=== PATIENT | male | born 1970 | race Caucasian/White ===

== ENCOUNTER 2025-03-02 05:37 | Observation (INO) ==
--- NOTE | 2025-03-02 06:18 | Emergency Department Note ---
Impression & Plan DDD (degenerative disc disease), lumbar, Ambulatory dysfunction ED Provider Note Diagnosis: Lower back pain, ambulatory dysfunction Disposition: Admit CHIEF COMPLAINT: Back pain HPI: Patient is a 54-year-old male presenting with complaint of lower back pain. Patient states symptoms of started over the past 1 to 2 weeks time. Patient states that approximately 2 months ago he had laminectomy for lower back pain radiating down his right leg. Those symptoms have resolved. Patient does physical therapy since then. Patient states he noticed 1 to 2 weeks ago that now he is having pain on the left lower back region and radiates down his left leg. Patient denies any bowel or bladder symptoms. Patient states he woke up this morning and had trouble standing on his left leg. Patient did not take any medications prior to arrival. PAST MEDICAL HISTORY: See Below PAST SURGICAL HISTORY: See Below SOCIAL HISTORY: See Below HOME MEDICATIONS: See Below ALLERGIES: See Below VITALS: See Below PHYSICAL EXAMINATION: GENERAL: Well appearing, well nourished, NAD, non-toxic. EYE EXAM: Normal conjunctiva. OROPHARYNX: Moist mucus membranes. Grossly normal dentition. NECK: Supple, LUNGS: Clear to auscultation. Normal chest wall mechanics. HEART: NSR ABDOMEN: Abdomen soft, non-tender, normo-active bowel sounds, no masses, no rebound or guarding BACK: Tenderness lower lumbar region and left sciatic region, 5 out of 5 muscle strength of the lower extremities bilaterally, intact sensation bilateral lower extremities, 2+ dorsal pedis pulses bilateral lower extremities SKIN: No rashes and no bruising. UPPER EXTREMITIES: Upper extremities are grossly normal LOWER EXTREMITIES: Grossly normal, no edema. NEURO EXAM: A&O x3,, normal speech, moves all 4 extremities PSYCH: Cooperative MEDICAL DECISION MAKING: History obtained from: Patient ER Course: Patient is a 54-year-old male presenting with complaint of left lower back pain that radiates down his left leg. Patient symptoms been present for couple days time and has been on a steroid course without improvement in symptoms. Patient states today he could not bear weight on his left side without feeling like he was going up fall. Patient states he has to walk up his left knee to feel like he has enough strength to hold himself up. Patient has bowel or bladder symptoms. Patient's postvoid residual that was performed approximately 30 minutes after he last urinated was less than 70 cc present. Patient not retaining urine. Patient was given medications for pain control. Patient has intact muscle strength and sensation of the lower extremities bilaterally. Patient has good strong 2+ dorsal pedis pulse left lower extremity. Please see discussions below with orthopedic surgery team and hospitalist service. Labs (independently interpreted) are significant for: No electrolyte abnormalities Imaging results (independently interpreted): X-ray lumbar spine no acute fracture Medications given: Dilaudid, Flexeril, Lyrica, Toradol Consultants: Discussed patient's case with his orthopedic surgery team , reviewed patient's presentation knows the patient well and they have been calling the office today and is aware of his current situation. Recommends patient receive an MRI of the lumbar spine with and without contrast and will come down and evaluate the patient at bedside. Patient was seen by Dr. Gregory no acute surgical abnormality found on MRI. Recommends patient received Toradol Lyrica. Recommends patient be admitted for pain consult Discussion with hospitalist service Triage Nursing notes reviewed and agree them. Vital Signs: reviewed and remarkable for: no significant abnormalities Past Med/Surg History Problem List (Updated 03/02/25 @ 15:10 by Enrique Lau DO) Ambulatory dysfunction (Acute) Pain of left lower extremity S/P lumbar laminectomy Lumbar spondylosis Pain of right lower extremity Paresthesia of right lower extremity Sacroiliitis Lumbar radiculopathy Arthralgia HEATHER positive LFT elevation DDD (degenerative disc disease), lumbar (Acute) Spinal stenosis Chronic back pain Anxiety with depression Hyperlipidemia Hypertension Medical History Hyperlipidemia Anxiety with depression Spinal stenosis Lumbar spondylosis Numbness and tingling of foot right Acid reflux Rheumatoid arthritis Taking Celebrex Asthma Taking Dupixent Surgical History PONV (postoperative nausea and vomiting) History of surgery on arm left biceps repair Nasal polyp nasal polyp surgeries x7 S/P cervical spinal fusion C6,C7- full ROM S/P rotator cuff surgery R/L H/O cardiac catheterization 2002 + 2009 > no stents Family History Grandfather Myocardial infarction Aunt Ovarian cancer Uncle Prostate cancer Mother Hypertension [place] cell carcinoma Father Diabetes Kidney disease Denies family history of Breast cancer Colorectal cancer Social History Smoking Status: Never smoker Second Hand Exposure: No; Do You Dip or Chew Tobacco: No; Hx Alcohol Use: Yes Alcohol type: hard liquor Alcohol Intake Frequency: 2-3 x/Week Hx Substance Use: No Preferred Language: Maldivian Communication Ability: Effective Visual Impairment: No Limitations Hearing Ability: Normal Rn Social Services Required: No Beliefs That Will Affect Care: None marital status: Legally Current Living Situation: Significant Other Current Living Situation Comment: W/GIRLFRIEND current occupational status: employed current occupation: [employer] Feels Safe at Home: Yes Childhood Exposure to Second-Hand Smoke: No Diet: regular caffeine: Yes Dental Care, Regularly: Yes Physical Activity Frequency: Does not Exercise Seatbelt Use: never Sunscreen Use: No Assistive Devices: None Allergies Allergies Allergy/AdvReac Type Severity Reaction Status Date / Time moxifloxacin [From Avelox] Allergy Severe Anaphylaxis Verified 03/02/25 08:01 Home Meds Home Medications Medication Instructions Recorded Confirmed triamcinolone acetonide 55 mcg 1 spray intranasal DAILY 11/26/24 03/02/25 nasal spray aerosol (Nasacort) dupilumab 300 mg/2 mL subcutaneous 300 mg subcut Q14D 03/02/25 03/02/25 syringe (Dupixent) gabapentin 300 mg capsule 300 mg PO TID PRN Pain 03/02/25 03/02/25 Previous Rx's Medication Instructions Recorded celecoxib 200 mg capsule (Celebrex) 200 mg PO BID #180 caps 10/30/24 duloxetine 30 mg capsule,delayed 30 mg PO DAILY #90 caps 10/30/24 release omeprazole 40 mg capsule,delayed 40 mg PO BID #60 caps 11/11/24 release fenofibrate nanocrystallized 145 145 mg PO DAILY #30 tabs 02/11/25 mg tablet Results & Data (ED) Vital Signs Vital Signs - 24 hr 03/02/25 05:40 03/02/25 06:51 03/02/25 08:03 Temperature 36.6 C Temperature Source Temporal Artery Scan Pulse Rate 71 Pulse Rate [Right Finger] 66 60 Pulse Rhythm Regular Pulse Strength Normal Respiratory Rate 18 20 18 Respiratory Effort / Characteristics Non-Labored Spontaneous Non-Labored Non-Labored Spontaneous Respiratory Depth Normal Normal Normal Respiratory Pattern Regular Blood Pressure 148/96 H Blood Pressure [Right Arm] 136/102 H 136/86 Blood Pressure Mean 113 Blood Pressure Mean [Right Arm] 113 102 Blood Pressure Position [Right Arm] Lying Pulse Oximetry 97 95 100 Oxygen Delivery Method Room Air Room Air Room Air Sepsis Recent Fever Within 48 Hours No Sepsis New/Unexplained Change in Mental Status No Sepsis Action Taken by Nursing No Action Required 03/02/25 10:47 03/02/25 12:00 03/02/25 14:00 Temperature Temperature Source Pulse Rate Pulse Rate [Right Finger] 67 67 70 Pulse Rhythm Pulse Strength Respiratory Rate 18 16 16 Respiratory Effort / Characteristics Non-Labored Spontaneous Respiratory Depth Normal Respiratory Pattern Regular Blood Pressure Blood Pressure [Right Arm] 126/75 136/85 134/106 H Blood Pressure Mean Blood Pressure Mean [Right Arm] 92 102 115 Blood Pressure Position [Right Arm] Lying Pulse Oximetry 93 97 94 Oxygen Delivery Method Room Air Room Air Room Air Sepsis Recent Fever Within 48 Hours Sepsis New/Unexplained Change in Mental Status Sepsis Action Taken by Nursing Laboratory Data 03/02/25 08:00 03/02/25 08:00 Lab Results 03/02/25 Range/Units 08:00 WBC 6.53 (4.8-10.8) K/ul RBC 5.36 (4.70-6.10) M/uL Hgb 14.7 (14.0-18.0) g/dl Hct 45.0 (42.0-52.0) % MCV 84.0 (80.0-100.0) fL MCH 27.4 (25.0-34.0) pg MCHC 32.7 (32.0-36.0) g/dL RDW Std Deviation 38.5 (36.4-46.3) fL RDW Coeff of Sg 12.8 (11.5-14.5) % Plt Count 213 (130-400) K/uL MPV 9.6 (9.4-12.4) fL Immature Gran % (Auto) 0.8 % Neut % (Auto) 49.1 % Lymph % (Auto) 40.0 % [place] % (Auto) 8.1 % Eos % (Auto) 1.4 % Baso % (Auto) 0.6 % Neut # (Auto) 3.21 (1.40-6.50) K/uL Lymph # (Auto) 2.61 (1.20-3.40) K/uL [place] # (Auto) 0.53 (0.11-0.59) K/uL Eos # (Auto) 0.09 (0.00-0.50) K/uL Baso # (Auto) 0.04 (0.00-0.20) K/uL Immature Gran # (Auto) 0.05 (0.01-0.20) K/uL Sodium 140 (136-145) mmol/L Potassium 4.1 (3.5-5.1) mmol/L Chloride 104 (98-107) mmol/L Carbon Dioxide 32 (21-32) mmol/L Anion Gap 4 (3-11) BUN 27 H (6-23) mg/dl Creatinine 1.04 (0.6-1.4) mg/dl Est Cr Clr Drug Dosing 93.4 ml/min eGFR 84.80 BUN/Creatinine Ratio 26.0 H (10-20) Glucose 97 (70-99(Fasting)) mg/dl Calcium 9.0 (8.6-10.3) mg/dl Administered Medications Discontinued Medications Cyclobenzaprine HCl (Cyclobenzaprine Hcl 10 Mg Tab) 10 mg PO NOW STA Stop: 03/02/25 06:14 Last Admin: 03/02/25 06:23 Dose: 10 mg Documented By: DULCE Gadobutrol (Gadobutrol 65ml Vial) 10 ml IV ONCE ONE Stop: 03/02/25 10:04 Last Admin: 03/02/25 10:05 Dose: 10 ml Documented By: SEVERIANO Hydromorphone HCl (Hydromorphone Inj 1 Mg/Ml Syringe) 1 mg IM NOW STA Stop: 03/02/25 06:14 Last Admin: 03/02/25 06:22 Dose: 1 mg Documented By: DULCE Ketorolac Tromethamine (Ketorolac Tromethamine 15 Mg/Ml Vial) 10 mg IV NOW ONE Stop: 03/02/25 13:22 Last Admin: 03/02/25 13:50 Dose: 10 mg Documented By: RADU Pregabalin (Pregabalin 50 Mg Cap) 50 mg PO ONCE ONE Stop: 03/02/25 13:23 Last Admin: 03/02/25 13:50 Dose: 50 mg Documented By: RADU Imaging Data Radiologist's Impression: Lumbar Spine X-Ray 03/02/25 06:14 EXAM: XR lumbar spine min 4V routine CLINICAL HISTORY: Lower pain with/ radiation down the left leg. TECHNIQUE: X-ray images of the lumbar spine were obtained in anteroposterior (AP), lateral, spot view L5-S1 and oblique projections. COMPARISON: 11-19-2024 X- ray. FINDINGS: Alignment: Reterolthesis of L1 over L2 and L2 over L3 is seen. (stable) Reduced lumbar lordosis (stable) Vertebral Bodies: Newly seen defective spinous processes of L2 and L3 vertebra , postoperative Mild decrease in ventral height of T11,T12 , L1 and L2 vertebral ( about 10-15%) , likely degenerative (stable) Spondylodegenerative changes of the lumbar spine are seen in form of marginal osteophytes of the opposing vertebral end plates, subchondral sclerosis of L5/S1 end plates Intervertebral Disc Spaces: Narrowed L1-2,L2-3 and L5-S1 disc spaces. (stable) Soft Tissues: Paraspinal soft tissues are of normal thickness. No evidence of paraspinal soft tissue swelling or mass effect. Additional Findings: No other significant abnormalities noted. IMPRESSION: 1. Newly seen defective spinous processes of L2 and L3 vertebra , postoperative 2. Lumbar spine degenerative changes (stable) 3. Mild decrease in ventral height of T11,T12 , L1 and L2 vertebral ( about 10-15%) , likely degenerative (stable) 4. Narrowed L1-L2, L2-L3 and L5-S1 disc spaces. (stable) 5. Reterolthesis of L1 over L2 and L2 over L3 is seen. (stable) 6. Reduced lumbar lordosis (stable) Disclaimer: A subtle bone abnormality or fracture may not be readily apparent on X-rays, thus clinical correlation and further imaging including follow-up CT, MRI, or follow-up X-rays are advised as needed. Electronically signed by Andi Monterroso 03-02-2025 08:09 AM Lumbar Spine MRI 03/02/25 07:47 MR lumbar spine wo/w con CLINICAL HISTORY: Back pain with radiculopathy. COMPARISON: X-ray of 03/02/2025 TECHNIQUE: Multiplanar, multi sequence MRI of the lumbar spine was performed without intravenous contrast. FINDINGS: Conus medullaris terminates normally at L1. There is prior laminectomy at L2-3. No acute fracture seen at the lumbar spine. No epidural hematoma. There is minimal retrolisthesis of L2 on 3 and L5 on S1. Otherwise normal alignment. There is enhancement of the scar overlying the laminectomy site with no abscess or hematoma seen. No abnormal enhancement seen. L1-2: There is a minimal disc bulge without significant central canal or neuroforaminal narrowing. L2-3: There is a mild disc bulge and mild ligamentum flavum and facet hypertrophy. No significant central canal narrowing. There is mild bilateral neural foraminal narrowing. L3-4: There is a minimal disc bulge. There is mild facet hypertrophy. There is mild central canal narrowing. There is mild bilateral neural foraminal narrowing. L4-5: There is a mild disc bulge with mild facet hypertrophy. No significant central canal narrowing. There is mild bilateral neural foraminal narrowing. L5-S1: There is a minimal disc bulge. There is minimal facet hypertrophy. No significant central canal narrowing. There is mild bilateral neural foraminal narrowing. IMPRESSION: 1. No lumbar spine fracture seen. 2. Degenerative changes as described. ACT 112: Negative or not required by law. The above report was generated using voice recognition software. It may contain grammatical, syntax or spelling errors. Electronically signed by: Jefferson Meza M.D. 03/02/2025 10:45 AM Orbit X-Ray 03/02/25 08:28 XR orbits for MRI CLINICAL HISTORY: Screening for foreign body for MRI COMPARISON STUDY: None FINDINGS: No metallic foreign bodies seen at the orbits. IMPRESSION: No metallic foreign body seen at the orbits. ACT 112: Negative or not required by law. Electronically signed by: Jefferson Meza M.D. 03/02/2025 9:10 AM Hip/Pelvis X-Ray 03/02/25 12:11 XR hip LT 2V w pelvis CLINICAL HISTORY: L hip/thigh pain COMPARISON: 12/04/2024 FINDINGS: No fracture or dislocation. There is a stable tiny chronic calcification adjacent to the left acetabulum, calcific tendinitis versus sequela of old injury. No acute fracture or dislocation. No significant degenerative change at the hips. SI joints are unremarkable. There are lower lumbar degenerative changes. IMPRESSION: No fracture seen. ACT 112: Negative or not required by law. Electronically signed by: Jefferson Meza M.D. 03/02/2025 12:40 PM Discharge Plan Visit Data Chief Complaint: Leg Injury/Pain Stated Complaint: LT LEG NUMBNESS, BACK SURG ED Provider: Enrique Lau Discharge Problem: DDD (degenerative disc disease), lumbar, Ambulatory dysfunction Condition: Fair Forms Stand Alone Forms: My [facility] [place] Prescriptions Prescriptions: No Action omeprazole 40 mg capsule,delayed release(DR/EC) 40 mg PO BID Qty: 60 2RF fenofibrate nanocrystallized 145 mg tablet 145 mg PO DAILY Qty: 30 0RF celecoxib [Celebrex] 200 mg capsule 200 mg PO BID Qty: 180 3RF duloxetine 30 mg capsule,delayed release(DR/EC) 30 mg PO DAILY Qty: 90 3RF triamcinolone acetonide [Nasacort] 55 mcg Aerosol,[place] 1 spray INTRANASAL DAILY Rx Instructions: administer into each nostril gabapentin 300 mg capsule 300 mg PO TID PRN (Reason: Pain) Dupixent Syringe 300 mg/2 mL syringe 300 mg subcut Q14D Referrals Referrals: Chan Cho DO [Primary Care Provider] -
[2025-03-02] MEDS: HYDROmorphone INJ 1 MG/ML SYRINGE IM STA (06:22)
[2025-03-02] MEDS: CYCLOBENZAPRINE HCL 10 MG TAB PO STA (06:23)
--- NOTE | 2025-03-02 08:10 | XRay Report ---
EXAM: XR lumbar spine min 4V routine CLINICAL HISTORY: Lower pain with/ radiation down the left leg. TECHNIQUE: X-ray images of the lumbar spine were obtained in anteroposterior (AP), lateral, spot view L5-S1 and oblique projections. COMPARISON: 11-19-2024 X- ray. FINDINGS: Alignment: Reterolthesis of L1 over L2 and L2 over L3 is seen. (stable) Reduced lumbar lordosis (stable) Vertebral Bodies: Newly seen defective spinous processes of L2 and L3 vertebra , postoperative Mild decrease in ventral height of T11,T12 , L1 and L2 vertebral ( about 10-15%) , likely degenerative (stable) Spondylodegenerative changes of the lumbar spine are seen in form of marginal osteophytes of the opposing vertebral end plates, subchondral sclerosis of L5/S1 end plates Intervertebral Disc Spaces: Narrowed L1-2,L2-3 and L5-S1 disc spaces. (stable) Soft Tissues: Paraspinal soft tissues are of normal thickness. No evidence of paraspinal soft tissue swelling or mass effect. Additional Findings: No other significant abnormalities noted. IMPRESSION: 1. Newly seen defective spinous processes of L2 and L3 vertebra , postoperative 2. Lumbar spine degenerative changes (stable) 3. Mild decrease in ventral height of T11,T12 , L1 and L2 vertebral ( about 10-15%) , likely degenerative (stable) 4. Narrowed L1-L2, L2-L3 and L5-S1 disc spaces. (stable) 5. Reterolthesis of L1 over L2 and L2 over L3 is seen. (stable) 6. Reduced lumbar lordosis (stable) Disclaimer: A subtle bone abnormality or fracture may not be readily apparent on X-rays, thus clinical correlation and further imaging including follow-up CT, MRI, or follow-up X-rays are advised as needed. Electronically signed by Andi Monterroso 03-02-2025 08:09 AM
[2025-03-02 08:12] LABS: Hematocrit (blood only) 45.0 % (42.0-52.0); Hemoglobin 14.7 g/dl (14.0-18.0); Immature Granulocytes # (auto) 0.05 K/uL (0.01-0.20); Immature Granulocytes % (auto) 0.8 %; Mean Corpuscular Hemoglobin 27.4 pg (25.0-34.0); Mean Corpuscular Volume 84.0 fL (80.0-100.0); Platelet Count 213 K/uL (130-400); RDW Standard Deviation 38.5 fL (36.4-46.3); Red Blood Count 5.36 M/uL (4.70-6.10); White Blood Count 6.53 K/ul (4.8-10.8)
[2025-03-02 08:32] LABS: Anion Gap 4.0 (3-11); Blood Urea Nitrogen 27.0 mg/dl (6-23); Calcium 9.0 mg/dl (8.6-10.3); Carbon Dioxide 32.0 mmol/L (21-32); Chloride 104.0 mmol/L (98-107); Creatinine Clr Calc Pharmacy 93.4 ml/min; Glucose 97.0 mg/dl (70-99(Fasting)); Potassium 4.1 mmol/L (3.5-5.1); Sodium 140.0 mmol/L (136-145)
--- NOTE | 2025-03-02 09:11 | XRay Report ---
XR orbits for MRI CLINICAL HISTORY: Screening for foreign body for MRI COMPARISON STUDY: None FINDINGS: No metallic foreign bodies seen at the orbits. IMPRESSION: No metallic foreign body seen at the orbits. ACT 112: Negative or not required by law. Electronically signed by: Jefferson Meza M.D. 03/02/2025 9:10 AM
[2025-03-02] MEDS: GADOBUTROL 65ML VIAL IV ONE (10:05)
--- NOTE | 2025-03-02 10:46 | Magnetic Resonance Report ---
MR lumbar spine wo/w con CLINICAL HISTORY: Back pain with radiculopathy. COMPARISON: X-ray of 03/02/2025 TECHNIQUE: Multiplanar, multi sequence MRI of the lumbar spine was performed without intravenous cont rast. FINDINGS: Conus medullaris terminates normally at L1. There is prior laminectomy at L2-3. No acute fr acture seen at the lumbar spine. No epidural hematoma. There is minimal retrolisthesis of L2 on 3 and L5 on S1. Otherwise normal alignment. There is enhancement of the scar overlying the laminectomy sit e with no abscess or hematoma seen. No abnormal enhancement seen. L1-2: There is a minimal disc bulge without significant central canal or neuroforaminal narrowing. L2-3: There is a mild disc bulge and mild ligamentum flavum and facet hypertrophy. No significant edmund tral canal narrowing. There is mild bilateral neural foraminal narrowing. L3-4: There is a minimal disc bulge. There is mild facet hypertrophy. There is mild central canal bola rowing. There is mild bilateral neural foraminal narrowing. L4-5: There is a mild disc bulge with mild facet hypertrophy. No significant central canal narrowing. There is mild bilateral neural foraminal narrowing. L5-S1: There is a minimal disc bulge. There is minimal facet hypertrophy. No significant central moraima l narrowing. There is mild bilateral neural foraminal narrowing. IMPRESSION: 1. No lumbar spine fracture seen. 2. Degenerative changes as described. ACT 112: Negative or not required by law. The above report was generated using voice recognition software. It may contain grammatical, syntax o r spelling errors. Electronically signed by: Jefferson Meza M.D. 03/02/2025 10:45 AM
[2025-03-02 12:23] VITALS: RESP 16
--- NOTE | 2025-03-02 12:42 | XRay Report ---
XR hip LT 2V w pelvis CLINICAL HISTORY: L hip/thigh pain COMPARISON: 12/04/2024 FINDINGS: No fracture or dislocation. There is a stable tiny chronic calcification adjacent to the l eft acetabulum, calcific tendinitis versus sequela of old injury. No acute fracture or dislocation. N o significant degenerative change at the hips. SI joints are unremarkable. There are lower lumbar deg enerative changes. IMPRESSION: No fracture seen. ACT 112: Negative or not required by law. Electronically signed by: Jefferson Meza M.D. 03/02/2025 12:40 PM
--- NOTE | 2025-03-02 13:36 | History & Physical Report ---
<Statement entered by Criselda Rivera MD - 03/03/25 17:57> I have reviewed vital signs, chart notes, labs and imaging. I have also discussed the management of the patient with the MARIA ESTHER and I agree with the exam findings documented in the history and physical examination and the documented assessment and plan unless otherwise stated below. Date of Service March 02, 2025 Assessment & Plan (1) S/P lumbar laminectomy: (2) Sacroiliitis: (3) Chronic back pain: (4) Hyperlipidemia: (5) Anxiety with depression: Plan 54 y/o man with spinal stenosis, lumbar radiculopathy, HLD, GERD and anxiety and depression who presents to the ER with worsening back pain x 2 weeks. Initial labs unrevealing. Lumbar spine xray and L-spine MRI without acute findings - no lumbar spine fracture seen, degenerative changes mild/minimal disc bulge throughout. Admitted for pain control and pain management consult. #Low back pain - ongoing for 2 weeks with recent surgery with Dr. Gregory 12/18. No acute findings on imaging. Ortho spine consulted - Dr. Bri mackenzie in the ER, not surgical intervention indicated, rec pain management consult for possible injection Pain management consulted Pain control: lyrica, scheduled Tylenol, continue celebrex prn tramadol for breakthrough. Heat pad Check B12 level #HLD - continue fenofibrate #mental health - continue cymbalta dispo: obs to med surg DVT proh: low risk, encourage ambulation Case discussed with Dr. Gregory significant other updated at bedside History of Present Illness Chief Complaint: back pain Primary Care Provider: Chan Cho DO 54 y/o man with spinal stenosis, lumbar radiculopathy, HLD, GERD and anxiety and depression who presents to the ER with worsening back pain x 2 weeks. Recent L2- L3, L3-L4 laminectomy with Dr. Gregory on 12/18. Reports that he was doing well post operatively and then pain started about 2 weeks ago on a Saturday, worse after going to therapy and doing leg presses. No falls or trauma. Does feel like his leg is going to give out when he is walking. reports having to walk with a locked knee. Has not gone to PT since then. Did have a course of prednisone that helped with the pain but not the weakness. Has been taking tylenol at home for pain. Very frustrated with how he is feeling as he was doing much better after surgery. Wishes to be a full code ED course: Flexeril 10mg PO Diluadid 1mg IM Toradol 10mg IV x1 Lyrica 50mg PO Allergies Allergy/AdvReac Type Severity Reaction Status Date / Time moxifloxacin [From Avelox] Allergy Severe Anaphylaxis Verified 03/02/25 08:01 Home Medications Medication Instructions Recorded Confirmed Type celecoxib 200 mg capsule (Celebrex) 200 mg PO BID #180 caps 10/30/24 03/02/25 Rx duloxetine 30 mg capsule,delayed 30 mg PO DAILY #90 caps 10/30/24 03/02/25 Rx release omeprazole 40 mg capsule,delayed 40 mg PO BID #60 caps 11/11/24 03/02/25 Rx release triamcinolone acetonide 55 mcg 1 spray intranasal DAILY 11/26/24 03/02/25 History nasal spray aerosol (Nasacort) fenofibrate nanocrystallized 145 145 mg PO DAILY #30 tabs 02/11/25 03/02/25 Rx mg tablet dupilumab 300 mg/2 mL subcutaneous 300 mg subcut Q14D 03/02/25 03/02/25 History syringe (Dupixent) gabapentin 300 mg capsule 300 mg PO TID PRN Pain 03/02/25 03/02/25 History Past Med/Surg History Problem List (Updated 12/20/24 @ 00:07 by Naz Agustin) S/P lumbar laminectomy Lumbar spondylosis Pain of right lower extremity Paresthesia of right lower extremity Sacroiliitis Lumbar radiculopathy Arthralgia HEATHER positive LFT elevation DDD (degenerative disc disease), lumbar Spinal stenosis Chronic back pain Anxiety with depression Hyperlipidemia Hypertension Medical History Hyperlipidemia Anxiety with depression Spinal stenosis Lumbar spondylosis Numbness and tingling of foot right Acid reflux Rheumatoid arthritis Taking Celebrex Asthma Taking Dupixent Surgical History PONV (postoperative nausea and vomiting) History of surgery on arm left biceps repair Nasal polyp nasal polyp surgeries x7 S/P cervical spinal fusion C6,C7- full ROM S/P rotator cuff surgery R/L H/O cardiac catheterization 2002 + 2009 > no stents Family History Grandfather Myocardial infarction Aunt Ovarian cancer Uncle Prostate cancer Mother Hypertension [place] cell carcinoma Father Diabetes Kidney disease Denies family history of Breast cancer Colorectal cancer Social History Smoking Status: Never smoker Second Hand Exposure: No; Do You Dip or Chew Tobacco: No; Hx Alcohol Use: Yes Alcohol type: hard liquor Alcohol Intake Frequency: 2-3 x/Week Hx Substance Use: No Preferred Language: Malagasy Communication Ability: Effective Visual Impairment: No Limitations Hearing Ability: Normal Pharmacy Intern Required: No Beliefs That Will Affect Care: None marital status: Legally Current Living Situation: Significant Other Current Living Situation Comment: W/GIRLFRIEND current occupational status: employed current occupation: MAINT. [employer] Feels Safe at Home: Yes Childhood Exposure to Second-Hand Smoke: No Diet: regular caffeine: Yes Dental Care, Regularly: Yes Physical Activity Frequency: Does not Exercise Seatbelt Use: never Sunscreen Use: No Assistive Devices: None Review of Systems Review of Systems: All systems reviewed & are unremarkable except as noted in Subjective Physical Exam Physical Exam: General: NAD, VS as above, ambulating back from bathroom without assistive device Resp: normal respiratory effort, lungs clear to auscultation CV: RRR, no murmur, Abd: normal bowel sounds, non tender, no hepatosplenomegaly Extremities: Moves all extremities, decreased sensation medial surface of left lower leg. Decreased strength of left lower leg 4/5 and straight leg raise elicits pain Neuro: A&O x3, Skin: intact, no lesions noted Results & Data Results & Data Vital Signs (Past 12 Hours) Vital Signs Temp Pulse Pulse Resp BP BP Pulse Ox 03/02/25 12:00 67 16 136/85 97 03/02/25 10:47 67 18 126/75 93 03/02/25 08:03 60 18 136/86 100 03/02/25 06:51 66 20 136/102 H 95 03/02/25 05:40 97.9 F 71 18 148/96 H 97 O2 Del Method 03/02/25 12:00 Room Air 03/02/25 10:47 Room Air 03/02/25 08:03 Room Air 03/02/25 06:51 Room Air 03/02/25 05:40 Room Air Laboratory Results cbc and chemistry reviewed Diagnostic Findings l spine xray reviewed l spine MRI reviewed hip xray reviewedd PG Care Time/CCT Total # of Minutes Spent Total Time Spent with Patient: Total time spent is greater than 50% in coordination of care (as documented) at patient's floor/unit and/or counseling patient: Coding Level of Care Code 82968 INT INP/OBS CARE 3/75MIN Diagnoses S/P lumbar laminectomy Z98.890 Sacroiliitis M46.1 Chronic bilateral low back pain with right-sided sciatica G89.29; M54.41 Back pain location: low back pain Back pain laterality: bilateral Sciatica presence: with sciatica Sciatica laterality: sciatica of right side Hyperlipidemia E78.5 Anxiety with depression F41.8 (3) Chronic back pain Back pain location: low back pain Back pain laterality: bilateral Sciatica presence: with sciatica Sciatica laterality: sciatica of right side Qualified Code(s): G89.29 - Other chronic pain; M54.41 - Lumbago with sciatica, right side
[2025-03-02] MEDS: PREGABALIN 50 MG CAP PO ONE (13:50)
[2025-03-02] MEDS: KETOROLAC TROMETHAMINE 15 MG/ML VIAL IV ONE (13:50)
--- NOTE | 2025-03-02 14:52 | Orthopedic Consultation ---
Date of Service March 02, 2025 Assessment & Plan (1) Pain of left lower extremity: * Case/imaging reviewed and discussed with Dr Gregory * S/p L2-4 laminectomy earlier this summer secondary to right lower extremity radiculopathy, had recovered well and was returned to work, now developing diffuse left leg pain * MRI reviewed, no significant disc bulge or stenosis to explain symptoms. No other findings to indicate surgical complication, infection or residual stenosis * No further orthopedic surgical procedure indicated at this time * Recommend conservative management via pain control. Toradol, Lyrica * Recommend pain management consult, possible injection versus ablation for remaining facet arthropathy * Weight bearing status: Activity as tolerated * Daily treatment: Physical Therapy/ Occupational Therapy per protocol * Pain control * Disposition: TBD * Remainder care per primary team * Will continue to follow History of Present Illness Reason for Consultation: Left-sided low back and leg pain Patient is a 54y/o male with left-sided low back and leg pain. PMH including spinal stenosis, lumbar radiculopathy, HLD, GERD and anxiety and depression. Known to orthopedic team, recent L2-[address] Gregory 12/18/2024. Initially had been recovering well and had recently returned to work. However approximately 2 weeks ago patient developed worsening left-sided low back and diffuse leg pain. Presents to hospital today for evaluation. Reports significant difficulty with ambulation, pain control at home. Current workup including MRI lumbar spine demonstrating multilevelmild disc bulge without significant stenosis, x-ray left hip/pelvis unremarkable. Orthopedics consulted for management recommendations. At time of exam patient sitting comfortably in bed, no acute distress. Endorses moderate constant left-sided low back/gluteal pain with seemingly migrating pain throughout the left leg, as well as some numbness of the medial aspect of the lower leg. Allergies Allergy/AdvReac Type Severity Reaction Status Date / Time moxifloxacin [From Avelox] Allergy Severe Anaphylaxis Verified 03/02/25 08:01 Home Medications Medication Instructions Recorded Confirmed Type celecoxib 200 mg capsule (Celebrex) 200 mg PO BID #180 caps 10/30/24 03/02/25 Rx duloxetine 30 mg capsule,delayed 30 mg PO DAILY #90 caps 10/30/24 03/02/25 Rx release omeprazole 40 mg capsule,delayed 40 mg PO BID #60 caps 11/11/24 03/02/25 Rx release triamcinolone acetonide 55 mcg 1 spray intranasal DAILY 11/26/24 03/02/25 History nasal spray aerosol (Nasacort) fenofibrate nanocrystallized 145 145 mg PO DAILY #30 tabs 02/11/25 03/02/25 Rx mg tablet dupilumab 300 mg/2 mL subcutaneous 300 mg subcut Q14D 03/02/25 03/02/25 History syringe (Dupixent) gabapentin 300 mg capsule 300 mg PO TID PRN Pain 03/02/25 03/02/25 History Past Med/Surg History Problem List (Updated 03/02/25 @ 15:10 by Enrique Lau DO) Ambulatory dysfunction (Acute) Pain of left lower extremity S/P lumbar laminectomy Lumbar spondylosis Pain of right lower extremity Paresthesia of right lower extremity Sacroiliitis Lumbar radiculopathy Arthralgia HEATHER positive LFT elevation DDD (degenerative disc disease), lumbar (Acute) Spinal stenosis Chronic back pain Anxiety with depression Hyperlipidemia Hypertension Medical History Hyperlipidemia Anxiety with depression Spinal stenosis Lumbar spondylosis Numbness and tingling of foot right Acid reflux Rheumatoid arthritis Taking Celebrex Asthma Taking Dupixent Surgical History PONV (postoperative nausea and vomiting) History of surgery on arm left biceps repair Nasal polyp nasal polyp surgeries x7 S/P cervical spinal fusion C6,C7- full ROM S/P rotator cuff surgery R/L H/O cardiac catheterization 2002 + 2009 > no stents Family History Grandfather Myocardial infarction Aunt Ovarian cancer Uncle Prostate cancer Mother Hypertension [place] cell carcinoma Father Diabetes Kidney disease Denies family history of Breast cancer Colorectal cancer Social History Smoking Status: Never smoker Second Hand Exposure: No; Do You Dip or Chew Tobacco: No; Hx Alcohol Use: Yes Alcohol type: hard liquor Alcohol Intake Frequency: 2-3 x/Week Hx Substance Use: No Preferred Language: Arabic Communication Ability: Effective Visual Impairment: No Limitations Hearing Ability: Normal Senior Lead Project Manager Required: No Beliefs That Will Affect Care: None marital status: Legally Current Living Situation: Significant Other Current Living Situation Comment: W/GIRLFRIEND current occupational status: employed current occupation: [employer] Feels Safe at Home: Yes Safety Concerns: Feels Safe At This Time Childhood Exposure to Second-Hand Smoke: No Diet: regular caffeine: Yes Dental Care, Regularly: Yes Physical Activity Frequency: Does not Exercise Seatbelt Use: never Sunscreen Use: No Assistive Devices: Glasses Review of Systems All systems reviewed & are unremarkable except as noted in HPI & below. Physical Exam . * General: Alert and oriented, no acute distress * Constitutional: well-developed, well-nourished. * Respiratory: Normal respiratory effort, no distress * Gastrointestinal: No tenderness to palpation, no rigidity or guarding. * Skin: No rash or lesion. * Neurologic: Grossly normal * Musculoskeletal: Lumbar region with no obvious deformity or overlying skin changes. Well-healed surgical incision. Otherwise no visual abnormalities to the left lower extremity. Mild TTP midline lumbar spine, left paraspinals, left gluteal region lateral thigh. Otherwise no specific tenderness of the distal thigh, knee, lower leg, foot/ankle. AROM hip flexion, knee extension, ankle dorsi/plantarflexion tact, strength 5/5. Sensation intact throughout the lower leg, decrease sensation to the medial aspect of the lower leg. Brisk capillary refill. Results & Data Results & Data Laboratory Results . Diagnostic Findings . Lumbar Spine X-Ray 03/02/25 06:14 EXAM: XR lumbar spine min 4V routine CLINICAL HISTORY: Lower pain with/ radiation down the left leg. TECHNIQUE: X-ray images of the lumbar spine were obtained in anteroposterior (AP), lateral, spot view L5-S1 and oblique projections. COMPARISON: 11-19-2024 X- ray. FINDINGS: Alignment: Reterolthesis of L1 over L2 and L2 over L3 is seen. (stable) Reduced lumbar lordosis (stable) Vertebral Bodies: Newly seen defective spinous processes of L2 and L3 vertebra , postoperative Mild decrease in ventral height of T11,T12 , L1 and L2 vertebral ( about 10-15%) , likely degenerative (stable) Spondylodegenerative changes of the lumbar spine are seen in form of marginal osteophytes of the opposing vertebral end plates, subchondral sclerosis of L5/S1 end plates Intervertebral Disc Spaces: Narrowed L1-2,L2-3 and L5-S1 disc spaces. (stable) Soft Tissues: Paraspinal soft tissues are of normal thickness. No evidence of paraspinal soft tissue swelling or mass effect. Additional Findings: No other significant abnormalities noted. IMPRESSION: 1. Newly seen defective spinous processes of L2 and L3 vertebra , postoperative 2. Lumbar spine degenerative changes (stable) 3. Mild decrease in ventral height of T11,T12 , L1 and L2 vertebral ( about 10-15%) , likely degenerative (stable) 4. Narrowed L1-L2, L2-L3 and L5-S1 disc spaces. (stable) 5. Reterolthesis of L1 over L2 and L2 over L3 is seen. (stable) 6. Reduced lumbar lordosis (stable) Disclaimer: A subtle bone abnormality or fracture may not be readily apparent on X-rays, thus clinical correlation and further imaging including follow-up CT, MRI, or follow-up X-rays are advised as needed. Electronically signed by Andi Monterroso 03-02-2025 08:09 AM Lumbar Spine MRI 03/02/25 07:47 MR lumbar spine wo/w con CLINICAL HISTORY: Back pain with radiculopathy. COMPARISON: X-ray of 03/02/2025 TECHNIQUE: Multiplanar, multi sequence MRI of the lumbar spine was performed without intravenous contrast. FINDINGS: Conus medullaris terminates normally at L1. There is prior laminectomy at L2-3. No acute fracture seen at the lumbar spine. No epidural hematoma. There is minimal retrolisthesis of L2 on 3 and L5 on S1. Otherwise normal alignment. There is enhancement of the scar overlying the laminectomy site with no abscess or hematoma seen. No abnormal enhancement seen. L1-2: There is a minimal disc bulge without significant central canal or n euroforaminal narrowing. L2-3: There is a mild disc bulge and mild ligamentum flavum and facet hypertrophy. No significant central canal narrowing. There is mild bilateral neural foraminal narrowing. L3-4: There is a minimal disc bulge. There is mild facet hypertrophy. There is mild central canal narrowing. There is mild bilateral neural foraminal narrowing. L4-5: There is a mild disc bulge with mild facet hypertrophy. No significant central canal narrowing. There is mild bilateral neural foraminal narrowing. L5-S1: There is a minimal disc bulge. There is minimal facet hypertrophy. No significant central canal narrowing. There is mild bilateral neural foraminal narrowing. IMPRESSION: 1. No lumbar spine fracture seen. 2. Degenerative changes as described. ACT 112: Negative or not required by law. The above report was generated using voice recognition software. It may contain grammatical, syntax or spelling errors. Electronically signed by: Jefferson Meza M.D. 03/02/2025 10:45 AM Orbit X-Ray 03/02/25 08:28 XR orbits for MRI CLINICAL HISTORY: Screening for foreign body for MRI COMPARISON STUDY: None FINDINGS: No metallic foreign bodies seen at the orbits. IMPRESSION: No metallic foreign body seen at the orbits. ACT 112: Negative or not required by law. Electronically signed by: Jefferson Meza M.D. 03/02/2025 9:10 AM Hip/Pelvis X-Ray 03/02/25 12:11 XR hip LT 2V w pelvis CLINICAL HISTORY: L hip/thigh pain COMPARISON: 12/04/2024 FINDINGS: No fracture or dislocation. There is a stable tiny chronic calcification adjacent to the left acetabulum, calcific tendinitis versus sequela of old injury. No acute fracture or dislocation. No significant degenerative change at the hips. SI joints are unremarkable. There are lower lumbar degenerative changes. IMPRESSION: No fracture seen. ACT 112: Negative or not required by law. Electronically signed by: Jefferson Meza M.D. 03/02/2025 12:40 PM PG Care Time/CCT Total # of Minutes Spent Total Time Spent with Patient: Total time spent is greater than 50% in coordination of care (as documented) at patient's floor/unit and/or counseling patient: C[place] [address] IN/OBS CONSULT LVL 4,60M Patient Type Established Medical Decision Making Moderate Complexity Diagnoses Pain of left lower extremity M79.605
[2025-03-02] MEDS ORDERED: MELATONIN 3 MG TAB PO PRN (15:23)
[2025-03-02] MEDS ORDERED: POLYETHYLENE (MIRALAX) 17 GM PACK PO PRN (15:23)
[2025-03-02] MEDS ORDERED: ONDANSETRON INJ 2 MG/ML 2 ML VIAL IV PRN (15:23)
[2025-03-02] MEDS ORDERED: GABAPENTIN 300 MG CAP PO PRN (15:23)
[2025-03-02] MEDS ORDERED: CYCLOBENZAPRINE HCL 5 MG TAB PO PRN (15:23)
[2025-03-02] MEDS: ACETAMINOPHEN 500 MG TAB PO SCH (17:15)
[2025-03-02] MEDS: PREGABALIN 50 MG CAP PO SCH (21:39)
[2025-03-02] MEDS: CeleBREX 200 MG CAP PO SCH (21:39)
[2025-03-03] MEDS: FLUTICASONE PROPIONATE NA SPR 16 GM BTL SCH (08:44)
[2025-03-03] MEDS: KETOROLAC TROMETHAMINE 15 MG/ML VIAL IV SCH (08:44)
--- NOTE | 2025-03-03 08:56 | Pain Management Consultation ---
Date of Consultation March 03, 2025 Assessment & Plan (1) S/P lumbar laminectomy: (2) Pain of left lower extremity: (3) Ambulatory dysfunction: Plan We did review the lumbar MRI which does not show any acute changes. Postop changes were noted. There is nothing to offer interventionally. Symptoms do seem related to an acute lumbar strain. I did provide him with neural flossing exercises. I did hold the Celebrex and ordered him Toradol 15 mg 3 times daily and switched Flexeril to baclofen 10 mg 3 times daily. He will continue with physical therapy on an outpatient basis. He is welcome to become established with the [facility] pain service if needed. Will sign off on the patient. Please contact with any questions or concerns. History of Present Illness Reason for Consultation: Acute back pain Attending Physician: Criselda Rivera MD History of Present Illness This is a 54-year-old male that received an L2-L3 and L3-L4 laminectomy and medial facetectomy by Dr. Gregory on 12/18/2024. He states that he was recovering well and involved with physical therapy. He was able to walk 6 miles every day. 2 weeks ago during physical therapy he felt a sudden pain when he was switching positions. Pain is located along the left flank and radiating along the medial aspect of the left thigh. The left flank is a deep aching pain in the thigh is a numbness tingling. He reports left leg weakness and having difficulty walking up steps. Pain is aggravated with standing or walking and alleviated with sitting or laying supine. He is chronically taking Celebrex 200 mg twice daily for chronic arthritic pains. Ordered Cymbalta 30 mg daily, Lyrica 50 mg twice daily, Flexeril 5 mg 3 times daily, tramadol 50 mg every 4 hours, and gabapentin 300 mg 3 times daily. He has not used Flexeril or tramadol during this admission. Orthopedics did evaluate the patient and there were no acute changes to warrant surgical intervention. No bowel/bladder incontinence, saddle anesthesia, foot drop, falls. Case discussed with Dr. Farzana Tobar Allergies Allergy/AdvReac Type Severity Reaction Status Date / Time moxifloxacin [From Avelox] Allergy Severe Anaphylaxis Verified 03/02/25 08:01 Home Medications Medication Instructions Recorded Confirmed Type celecoxib 200 mg capsule (Celebrex) 200 mg PO BID #180 caps 10/30/24 03/02/25 Rx duloxetine 30 mg capsule,delayed 30 mg PO DAILY #90 caps 10/30/24 03/02/25 Rx release omeprazole 40 mg capsule,delayed 40 mg PO BID #60 caps 11/11/24 03/02/25 Rx release triamcinolone acetonide 55 mcg 1 spray intranasal DAILY 11/26/24 03/02/25 History nasal spray aerosol (Nasacort) fenofibrate nanocrystallized 145 145 mg PO DAILY #30 tabs 02/11/25 03/02/25 Rx mg tablet dupilumab 300 mg/2 mL subcutaneous 300 mg subcut Q14D 03/02/25 03/02/25 History syringe (Dupixent) gabapentin 300 mg capsule 300 mg PO TID PRN Pain 03/02/25 03/02/25 History Pain History Pain Location Full Body Front + Back: 2 1. ache 2. numb Patient History Medical History Encounter for pre-operative examination Hyperlipidemia Anxiety with depression Spinal stenosis Lumbar spondylosis Numbness and tingling of foot right Acid reflux Rheumatoid arthritis Taking Celebrex Asthma Taking Dupixent Surgical History PONV (postoperative nausea and vomiting) History of surgery on arm left biceps repair Nasal polyp nasal polyp surgeries x7 S/P cervical spinal fusion C6,C7- full ROM S/P rotator cuff surgery R/L H/O cardiac catheterization 2002 + 2009 > no stents Family History Grandfather Myocardial infarction Aunt Ovarian cancer Uncle Prostate cancer Mother Hypertension Paula cell carcinoma Father Diabetes Kidney disease Denies family history of Breast cancer Colorectal cancer Social History Smoking Status: Never smoker Second Hand Exposure: No; Do You Dip or Chew Tobacco: No; Hx Alcohol Use: Yes Alcohol type: hard liquor Alcohol Intake Frequency: 2-3 x/Week Hx Substance Use: No Preferred Language: Qatari Communication Ability: Effective Visual Impairment: No Limitations Hearing Ability: Normal Medical Numerical Control Operator Required: No Beliefs That Will Affect Care: None marital status: Legally Current Living Situation: Significant Other Current Living Situation Comment: W/GIRLFRIEND current occupational status: employed current occupation: [employer] Feels Safe at Home: Yes Safety Concerns: Feels Safe At This Time Childhood Exposure to Second-Hand Smoke: No Diet: regular caffeine: Yes Dental Care, Regularly: Yes Physical Activity Frequency: Does not Exercise Seatbelt Use: never Sunscreen Use: No Assistive Devices: Glasses Physical Exam 2 Physical Exam: GENERAL: This is a pleasant 54-year-old male in no acute distress. Accompanied by his significant other. HEAD/FACE: Normocephalic and atraumatic. EYES: No drainage or conjunctival injection. ENT: Nose without bleeding or discharge. Oral mucosa moist. NECK: Full ROM without apparent pain. No swelling or masses noted. RESPIRATORY: Patient with unlabored breathing. No signs of respiratory distress. CHEST/AXILLA: Chest movement symmetrical. No deformities noted. ABDOMEN/GI: No distension BACK: Well-healed surgical incision along the lumbar midline. No midline, facet joint, SI joint tenderness. No paravertebral, quadratus lumborum, gluteal, piriformis muscle spasm or trigger points noted. SKIN: [place], warm and dry. No rash noted. MS/EXTREMITY: 4/5 strength with left hip flexion, otherwise 5/5 strength of the lower extremities. NEURO: Alert and appears oriented. Speech is fluent. Cranial Nerves are grossly intact. PSYCH: Alert, pleasant, affect is calm Results (Pain Clinic) Diagnostic Review MRI Findings: MR lumbar spine wo/w con CLINICAL HISTORY: Back pain with radiculopathy. COMPARISON: X-ray of 03/02/2025 TECHNIQUE: Multiplanar, multi sequence MRI of the lumbar spine was performed without intravenous contrast. FINDINGS: Conus medullaris terminates normally at L1. There is prior laminectomy at L2-3. No acute fracture seen at the lumbar spine. No epidural hematoma. There is minimal retrolisthesis of L2 on 3 and L5 on S1. Otherwise normal alignment. There is enhancement of the scar overlying the laminectomy site with no abscess or hematoma seen. No abnormal enhancement seen. L1-2: There is a minimal disc bulge without significant central canal or neuroforaminal narrowing. L2-3: There is a mild disc bulge and mild ligamentum flavum and facet hypertrophy. No significant central canal narrowing. There is mild bilateral neural foraminal narrowing. L3-4: There is a minimal disc bulge. There is mild facet hypertrophy. There is mild central canal narrowing. There is mild bilateral neural foraminal narrowing. L4-5: There is a mild disc bulge with mild facet hypertrophy. No significant central canal narrowing. There is mild bilateral neural foraminal narrowing. L5-S1: There is a minimal disc bulge. There is minimal facet hypertrophy. No significant central canal narrowing. There is mild bilateral neural foraminal narrowing. IMPRESSION: 1. No lumbar spine fracture seen. 2. Degenerative changes as described. ACT 112: Negative or not required by law. The above report was generated using voice recognition software. It may contain grammatical, syntax or spelling errors. Electronically signed by: Jefferson Meza M.D. 03/02/2025 10:45 AM
[2025-03-03] MEDS: BACLOFEN 10 MG TAB PO SCH (10:05)
[2025-03-03] MEDS: FENOFIBRATE NANOCRYSTALLIZED 145 MG TABLET PO SCH (10:05)
--- NOTE | 2025-03-03 10:15 | Orthopedic Progress Note ---
Date of Service March 03, 2025 Assessment & Plan (1) Pain of left lower extremity: * Case/imaging reviewed and discussed with Dr Gregory * S/p L2-4 laminectomy earlier this summer secondary to right lower extremity radiculopathy, had recovered well and was returned to work, now developing diffuse left leg pain following extensive physical therapy and single leg leg press, pulling of sled * MRI reviewed, no significant disc bulge or stenosis to explain symptoms. No other findings to indicate surgical complication, infection or residual stenosis * No further orthopedic surgical procedure indicated at this time * Appreciate pain management evaluation, medication adjustments noted * Weight bearing status: Activity as tolerated * Daily treatment: Physical Therapy/ Occupational Therapy per protocolWill need to work on piriformis stretching * Pain control * Disposition: Okay for discharge, will arrange for out patient nerve conduction study to evaluate for compression of the sciatic nerve from the piriformis * Continue conservative care via pain medications, PT/OT * Would benefit from a short course of Toradol outpatient followed by muscle relaxers which I have prescribed to him previously * Follow-up in office after nerve conduction study Subjective . Active Problems: Left leg pain 54 y/o male with left leg pain. S/p L2-4 laminectomy earlier this summer. Doing well overall, pain managed and improved function. Denies fever/chills, chest pain/SOB, nausea/vomiting. Otherwise no complaints. Evaluated by Pain Management team earlier this morning, reviewed post-operative changes on MRI, discussed management options including PT, neural flossing, and medication adjustment, no further intervention indicated. Review of Systems All systems reviewed & are unremarkable except as noted in HPI & below. Physical Exam * Musculoskeletal: Lumbar region with no obvious deformity or overlying skin changes. Well-healed surgical incision. Otherwise no visual abnormalities to the left lower extremity. Mild TTP midline lumbar spine, left paraspinals, left gluteal region lateral thigh. Otherwise no specific tenderness of the distal thigh, knee, lower leg, foot/ankle. AROM hip flexion, knee extension, ankle dorsi/plantarflexion tact, strength 5/5. Sensation intact throughout the lower leg, decrease sensation to the medial aspect of the lower leg. Brisk capillary refill. On stretching of the piriformis muscle, patient has extreme tightness and weakness on the left to a lesser degree on the right, this does reproduce the pain. Results & Data Results & Data Laboratory Results . Diagnostic Findings . Lumbar Spine MRI 03/02/25 07:47 MR lumbar spine wo/w con CLINICAL HISTORY: Back pain with radiculopathy. COMPARISON: X-ray of 03/02/2025 TECHNIQUE: Multiplanar, multi sequence MRI of the lumbar spine was performed without intravenous contrast. FINDINGS: Conus medullaris terminates normally at L1. There is prior laminectomy at L2-3. No acute fracture seen at the lumbar spine. No epidural hematoma. There is minimal retrolisthesis of L2 on 3 and L5 on S1. Otherwise normal alignment. There is enhancement of the scar overlying the laminectomy site with no abscess or hematoma seen. No abnormal enhancement seen. L1-2: There is a minimal disc bulge without significant central canal or neuroforaminal narrowing. L2-3: There is a mild disc bulge and mild ligamentum flavum and facet hypertrophy. No significant central canal narrowing. There is mild bilateral neural foraminal narrowing. L3-4: There is a minimal disc bulge. There is mild facet hypertrophy. There is mild central canal narrowing. There is mild bilateral neural foraminal narrowing. L4-5: There is a mild disc bulge with mild facet hypertrophy. No significant central canal narrowing. There is mild bilateral neural foraminal narrowing. L5-S1: There is a minimal disc bulge. There is minimal facet hypertrophy. No significant central canal narrowing. There is mild bilateral neural foraminal narrowing. IMPRESSION: 1. No lumbar spine fracture seen. 2. Degenerative changes as described. ACT 112: Negative or not required by law. The above report was generated using voice recognition software. It may contain grammatical, syntax or spelling errors. Electronically signed by: Jefferson Meza M.D. 03/02/2025 10:45 AM Hip/Pelvis X-Ray 03/02/25 12:11 XR hip LT 2V w pelvis CLINICAL HISTORY: L hip/thigh pain COMPARISON: 12/04/2024 FINDINGS: No fracture or dislocation. There is a stable tiny chronic calcifi cation adjacent to the left acetabulum, calcific tendinitis versus sequela of old injury. No acute fracture or dislocation. No significant degenerative change at the hips. SI joints are unremarkable. There are lower lumbar degenerative changes. IMPRESSION: No fracture seen. ACT 112: Negative or not required by law. Electronically signed by: Jefferson Meza M.D. 03/02/2025 12:40 PM PG Care Time/CCT Total # of Minutes Spent Total Time Spent with Patient: Total time spent is greater than 50% in coordination of care (as documented) at patient's floor/unit and/or counseling patient: Coding Level of Care Code 11133 SUB INP/OBS CARE 2/35MIN Diagnoses Pain of left lower extremity M79.605
--- NOTE | 2025-03-03 13:00 | Discharge Summary ---
Discharge Summary Date of Service March 03, 2025 Principal Dx & Hospital Course #1 = Principal Diagnosis (1) Acute low back pain: (2) S/P lumbar laminectomy: (3) Chronic back pain: (4) Hyperlipidemia: (5) Anxiety with depression: Plan 54 y/o man with spinal stenosis, lumbar radiculopathy, HLD, GERD and anxiety and depression who presents to the ER with worsening back pain x 2 weeks. 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 Initial labs unrevealing. Lumbar spine xray and L-spine MRI without acute findings - no lumbar spine fracture seen, degenerative changes mild/minimal disc bulge throughout. Admitted for pain con trol and pain management consult. #Acute low back pain - surgery by Dr. Gregory 12/18 and following that RLE radicular pain had resolved. Was walking up to 6 mi a day and returning to work. Probably strained back 2 weeks ago at PT session. Severe LBP since then with radiation down buttock, L thigh, to L groin, dysesthesia over L mid leg. Feels weak and that knee roxanne when walking. Ortho spine consulted - Dr. Bri mackenzie in the ER, not surgical intervention indicated, rec pain management consult for possible injection Pain management consulted - injection would not be effective, thought probably muscle strain, rec increased NSAIDS, changed muscle relaxer to baclofen, started pregabalin Rx for these given, hold celebrex while on course of toradol for several days, heat/ice and gentle stretching gently walking, Rx given for PT once pain flare improves. Symptoms controlled enough for discharge today. Will follow up with Dr. Gregory and with pain service as needed #HLD - continue fenofibrate #mental health - continue cymbalta Notes For Next Care Provider acute back pain flare Medication Changes From Visit toradol x 5 days, baclofen 10 tid, pregabalin 50 bid, scheduled APAP hold celebrex until off toradol Admission HPI Per Admitting Provider 54 y/o man with spinal stenosis, lumbar radiculopathy, HLD, GERD and anxiety and depression who presents to the ER with worsening back pain x 2 weeks. Recent L2- L3, L3-L4 laminectomy with Dr. Gregory on 12/18. Reports that he was doing well post operatively and then pain started about 2 weeks ago on a Saturday, worse after going to therapy and doing leg presses. No falls or trauma. Does feel like his leg is going to give out when he is walking. reports having to walk with a locked knee. Has not gone to PT since then. Did have a course of prednisone that helped with the pain but not the weakness. Has been taking tylenol at home for pain. Very frustrated with how he is feeling as he was doing much better after surgery. Wishes to be a full code ED course: Flexeril 10mg PO Diluadid 1mg IM Toradol 10mg IV x1 Lyrica 50mg PO Discharge Exam Last 24h vitals reviewed GEN: no acute distress, sitting in bed and pacing in room HEENT: pupils equal, sclerae anicteric, moist MM RESP: normal WOB CV: ABD: : no martin SKIN: warm and dry, no generalized rashes, no leg edema MSK: walking around in room and steady, Straight leg raise negative, piriformis stretch seems to reproduce sx, no obvious spasm on low back or buttock NEURO: AOx person, place, and situation. Face symmetric, speech normal, moves 4 ext spontaneously and equally Discharge Plan Discharge Items Patient Disposition: Home - Self-Care Reason For Visit: INTRACTABLE BACK PAIN Discharge Diagnosis: Intractable back pain Condition on Discharge: Good Activity: Per Instructions section Non-emergency contact: Primary Care Provider and Surgeon Call non-emergency contact if: you have any medication questions and your symptoms worsen Follow-up/Referrals: Chan Cho DO [Primary Care Provider] - 03/10/25 2:00 pm Stevenson Gregory MD [Surgeon] - Diet: Regular Addtl Attending Provider Instructions: You were treated for acute back pain. MRI imaging was reassuring that there is not any cord or nerve compression in the spine that is causing it. Ortho Spine and Pain Service consulted - they recommended conservative measures and pain control at this time. Follow up with Dr. Gregory as planned and you may schedule follow up with [facility] pain clinic if needed. Once the acute pain settles down a bit, physical therapy may help. Heat or ice and gentle stretching may help in addition to medications. Continue walking but keep it gentle until you improve Baclofen is a muscle relaxer that can help with spam. Taking acetaminophen three or four times a day on a schedule will also probably help - the max is 3000 mg per day. It was a pleasure taking care of you in the hospital, Criselda Rivera MD Pending Studies at Discharge: No Stand-Alone Forms: My [facility], Smoking Cessation Medications and DC Order Prescriptions: New acetaminophen [Tylenol Extra Strength] 500 mg Tablet 1,000 mg PO Q8 Qty: 0 0RF baclofen 10 mg Tablet 10 mg PO TID PRN (Reason: muscle spasm) Qty: 30 0RF ketorolac 10 mg tablet 10 mg PO Q8H 5 Days Qty: 15 0RF pregabalin [Lyrica] 50 mg Capsule 50 mg PO BID Qty: 60 0RF Continued omeprazole 40 mg capsule,delayed release(DR/EC) 40 mg PO BID Qty: 60 2RF fenofibrate nanocrystallized 145 mg tablet 145 mg PO DAILY Qty: 30 0RF duloxetine 30 mg capsule,delayed release(DR/EC) 30 mg PO DAILY Qty: 90 3RF triamcinolone acetonide [Nasacort] 55 mcg Aerosol,[place] 1 spray INTRANASAL DAILY Rx Instructions: administer into each nostril gabapentin 300 mg capsule 300 mg PO TID PRN (Reason: Pain) Dupixent Syringe 300 mg/2 mL syringe 300 mg subcut Q14D Held celecoxib [Celebrex] 200 mg capsule 200 mg PO BID Qty: 180 3RF Hold Instructions: hold until no longer taking ketorolac Discharge Orders: Discharge Order (Routine); Ordered 03/03/25 Ordered By: Criselda Rivera Admission Data Admit Date/Time: 03/02/25 13:54 Attending Provider: Criselda Rivera Admit Provider: Criselda Rivera Primary Care Provider: Chan Coh Other Providers: Criselda Rivera; Farzana Tobar; Stevenson Gregory Other Interventions: Discharge Summary Assessment (RN) Last Done: 03/03/25 15:07 Hospital Stay Data Consultations 03/02/25 13:20 ED Decision to Admit Stat 03/02/25 14:01 Consult Orthopedic Spine Surgery Routine 03/02/25 15:23 Consult Pain Management Routine Diagnostic Imagining Performed 03/02/25 07:47 MRI Lumbar Spine [MR lumbar spine wo/w con] Stat Pending Results Patient Have Any Pending Studies at Discharge: No Discharge Instructions Given to Patient (Per Discharging Provider) You were treated for acute back pain. MRI imaging was reassuring that there is not any cord or nerve compression in the spine that is causing it. Ortho Spine and Pain Service consulted - they recommended conservative measures and pain control at this time. Follow up with Dr. Gregory as planned and you may schedule follow up with [facility] pain clinic if needed. Once the acute pain settles down a bit, physical therapy may help. Heat or ice and gentle stretching may help in addition to medications. Continue walking but keep it gentle until you improve Baclofen is a muscle relaxer that can help with spam. Taking acetaminophen three or four times a day on a schedule will also probably help - the max is 3000 mg per day. It was a pleasure taking care of you in the hospital, Criselda Rivera MD Total Time Total Time Spent Total Time Spent (In Minutes): <30 Coding Level of Care Code 42510 IN/OBS DISCH 30 MIN/LESS Diagnoses Acute low back pain M54.50 S/P lumbar laminectomy Z98.890 Chronic bilateral low back pain with right-sided sciatica G89.29; M54.41 Back pain laterality: bilateral Back pain location: low back pain Sciatica laterality: sciatica of right side Sciatica presence: with sciatica Hyperlipidemia E78.5 Anxiety with depression F41.8
[2025-03-03 14:50] VITALS: BP 129/84; PULSE 67; TEMP 98.1; O2SAT 97
== END 2025-03-03 15:45 | disposition home or self-care (01) ==
LOC: ED 05:37 → EDINP 05:37 → SUATTDRO 13:54 → 3E 15:23